=== PATIENT | male | born 2000 | race African-American/Black ===

== ENCOUNTER 2022-12-12 19:05 | Emergency (ER) | payer MEDICAID, SELFPAY ==
[2022-12-12 19:07] VITALS: BP 131/83; PULSE 64; RESP 16; TEMP 36.3; O2SAT 100; BMI 26.6
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
== END 2022-12-12 22:27 | disposition home or self-care (01) ==
PROVIDERS: Emergency Provider Emergency Medicine; Visit Provider Emergency Medicine
DX: S32.029A Unspecified fracture of second lumbar vertebra, initial encounter for closed fracture (principal); S80.02XA Contusion of left knee, initial encounter; F17.220 Nicotine dependence, chewing tobacco, uncomplicated; V89.2XXA Person injured in unspecified motor-vehicle accident, traffic, initial encounter
CPT/HCPCS: 72131; 73564; 99282